=== PATIENT | male | born 1955 | race Caucasian/White ===

== ENCOUNTER 2019-03-30 04:46 | Observation (INO) | payer OTHER ==
[~2019-03-30] VITALS: Ht 188 cm; Wt 85.3 kg
--- NOTE | ~2019-03-30 | CON ---
[address] [address] CONSULTATION Name: ASHLI CALLE Room: [address] IN M.R.#: [id number] Admission: 03/30/19 Attend Phys: Len Brandon MD Discharge: Date of : 57 Report #: [id number] THIS REPORT FOR: //name// CC: Len Garber HISTORY OF PRESENT ILLNESS: This is a pleasant 64-year-old gentleman with prior history of diverticulosis, ____, presenting with bright red blood per rectum. The patient reports he was in his usual state of health until yesterday when he began noticing bright red blood per rectum. The patient reports this was present when he was passing stool. He denies any pain associated with passing stool and denies any abdominal pain or cramps. The patient reports amount of blood is moderate and is enough to turn the color of the water in the toilet bowl deep red. The patient reports intermittent hematochezia in the past, but not to this extent. He reports a prior history of colonoscopy that demonstrated adenoma, diverticulosis and hemorrhoids. The patient denies any NSAID or antithrombotic agents use. PAST MEDICAL HISTORY: Nonsignificant. PAST SURGICAL HISTORY: Nonsignificant. SOCIAL HISTORY: The patient denies smoking, alcohol or recreational drug use. FAMILY HISTORY: There is no family history of colorectal cancer or Bowens related neoplasia. REVIEW OF SYSTEMS: A comprehensive 10-point review of systems is negative except for what is mentioned in the HPI. PHYSICAL EXAMINATION: GENERAL: The patient is alert, awake, oriented x 3. HEENT: Pupils are equal, round, reactive to light and accommodation. Mucous membranes are moist. ABDOMEN: ____ guarding or rigidity. EXTREMITIES: Warm and well-perfused, no edema. SKIN: Warm and dry. Dictation Ends Here By: [id number] Curiel MD /nt
--- NOTE | ~2019-03-30 | PROC ---
[facility] [address] [place] [address] PROCEDURE REPORT Name: ASHLI CALLE Room: [address] Raj Jauregui#: [id number] Admission: 03/30/19 Attend Phys: Len Brandon MD Discharge: 04/01/19 Date of : 57 Report #: [id number] THIS REPORT FOR: //name// For GI report, please see the Provation report in Perceptive 7 content. By: [id number] Records Staff TORIN /ELIOSA
--- NOTE | ~2019-03-30 | CON ---
[address] [address] CONSULTATION Name: ASHLI CALLE Room: [address] IN .R.#: [id number] Admission: 03/30/19 Attend Phys: Len Brandon MD Discharge: Date of : 57 Report #: [id number] THIS REPORT FOR: //name// [facility]: [facility] DATA: Hemoglobin 15.3, hematocrit 43.9, platelet count 171, WBC count 5.5. Sodium 136, potassium 4.3, chloride 101, bicarbonate 27, BUN 14, creatinine 0.9, total bilirubin 0.4, AST 22, ALT 35, alkaline phosphatase 68, lipase 121. IMAGING: CT abdomen and pelvis, multiple large cysts throughout the liver; multiple small cysts and occasional large cysts in both kidneys; pancreas and spleen unremarkable; large amount of food material in the stomach; large amount of stool throughout various regions of the colon; extensive distal diverticulosis without evidence of diverticulitis or colitis. ASSESSMENT AND PLAN: A pleasant 64-year-old gentleman with prior history of diverticulosis, colonic adenoma and hemorrhoids, who is presenting with painless hematochezia. I will place the patient on clear liquid diet for today and prep him for colonoscopy tomorrow. Further recommendations will be based on the results of colonoscopy. By: 1904 MD mercedes Delvalle
[2019-03-30 04:53] VITALS: BP 150/84
[2019-03-30 05:14] LABS: ABSOLUTE LYMPHOCYTES 0.6 thou/uL (0.8-5.3); ABSOLUTE MONOCYTES 0.5 thou/uL (0.0-1.2); ABSOLUTE NEUTROPHILS 4.4 thou/uL (1.6-8.1); BASOPHILS 0.6 %; EOSINOPHILS 0.3 %; HEMATOCRIT 43.9 % (42.0-52.0); HEMOGLOBIN 15.3 gm/dL (14.0-18.0); LYMPHOCYTES 11.5 %; MCH 31.5 pg (26.0-34.0); MCHC 34.8 g/dL (28.0-37.0); MCV 90.5 fL (80.0-100.0); MONOCYTES 9.1 %; MPV 8.5 fl. (7.2-11.1); NUCLEATED RBCS 0 /100WBC; PLATELET COUNT* 171 thou/uL (150-400); POLYS 78.5 %; RBC 4.85 mil/uL (4.50-6.00); RDW-CV 13.3 % (10.5-14.5); WBC 5.5 thou/uL (4.0-11.0)
[2019-03-30 05:21] LABS: ANION GAP 8 mmol/L (7-16); BUN 14 mg/dL (7-18); CALCIUM 8.8 mg/dL (8.5-10.1); CHLORIDE 101 mmol/L (98-107); CO2 27 mmol/L (21-32); CREATININE 0.9 mg/dL (0.6-1.3); GLUCOSE 97 mg/dL (70-99); POTASSIUM 4.3 mmol/L (3.5-5.1); SODIUM 136 mmol/L (136-145)
[2019-03-30 05:23] LABS: APTT 28.8 Seconds (25.0-31.3); PROTIME 10.1 Seconds (9.20-11.50)
[2019-03-30 05:33] LABS: ALKALINE PHOSPHATASE 68 U/L (46-116); LIPASE 121 U/L (73-393); SGOT 22 U/L (15-37); SGPT 35 U/L (30-65); TOTAL BILIRUBIN 0.4 mg/dL (<0.1-1.0); TROPONIN-I LEVEL <0.06 ng/mL (<0.06)
--- NOTE | 2019-03-30 05:58 | NUR ---
PT UP TO RESTROOM AND PASSED LARGE AMOUNT OF BRIGHT RED BLOOD. DR BANKS NOTIFIED
[2019-03-30 06:06] LABS: URINE BILIRUBIN NEGATIVE (Negative); URINE BLOOD NEGATIVE (Negative); URINE CLARITY CLEAR; URINE COLOR YELLOW; URINE GLUCOSE-RANDOM NEGATIVE (Negative); URINE KETONES NEGATIVE (Negative); URINE LEUKOCYTES-REFLEX NEGATIVE (Negative); URINE NITRITE-REFLEX NEGATIVE (Negative); URINE PROTEIN NEGATIVE (Negative); URINE SPECIFIC GRAVITY <= 1.005 (1.005-1.030); URINE UROBILINOGEN 0.2 E.U./dl (0.2-1.0)
--- NOTE | 2019-03-30 11:02 | EKG ---
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
[2019-03-30 14:00] VITALS: BP 134/88
--- NOTE | 2019-03-30 14:35 | NUR ---
DIRECT ADMIT TO 205 ORIENTED TO AND CALL LIGHT VS DONE AND STABLE SEE DOCUMENTATION ADMISSION ASSMNT AND HX TO BE DONE
[2019-03-30 14:40] VITALS: BP 122/74
[2019-03-30] MEDS ORDERED: PROSCAR 5MG TABL5 MG PO (14:48)
[2019-03-30 14:59] LABS: HEMATOCRIT 42.6 % (42.0-52.0); HEMOGLOBIN 14.5 gm/dL (14.0-18.0)
[2019-03-30 15:56] VITALS: BP 144/89
[2019-03-30 16:15] VITALS: BP 148/88
[2019-03-30 20:00] VITALS: BP 149/79
[2019-03-31 00:11] VITALS: BP 142/82
--- NOTE | 2019-03-31 03:58 | NUR ---
ASSUMED PT CARE APPROX 1930. PT IS AWAKE AND ORIENTED X4. VSS ON RA. 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 PT DENIES PAIN/NAUSEA. BOWEL PREP IN PROGRESS. PT's BM IS CLEARING UP, WITH MINIMAL BLOOD NOTED. PT IS FOR COLONOSCOPY WITH POSSIBLE BIOPSY, POLYPECTOMY, CONTROL OF HEMORRHAGE IN AM. PT ADVISED TO HAVE NOTHING PER [place]. CALL LIGHT WITHIN REACH. HOURLY ROUNDING DONE FOR PT SAFETY.
[2019-03-31 04:14] VITALS: BP 149/78
[2019-03-31 05:40] LABS: ABSOLUTE LYMPHOCYTES 0.7 thou/uL (0.8-5.3); ABSOLUTE MONOCYTES 0.3 thou/uL (0.0-1.2); ABSOLUTE NEUTROPHILS 2.2 thou/uL (1.6-8.1); BASOPHILS 0.6 %; EOSINOPHILS 0.6 %; HEMATOCRIT 41.3 % (42.0-52.0); HEMOGLOBIN 14.2 gm/dL (14.0-18.0); LYMPHOCYTES 21.7 %; MCH 31.5 pg (26.0-34.0); MCHC 34.4 g/dL (28.0-37.0); MCV 91.6 fL (80.0-100.0); MONOCYTES 10.4 %; NUCLEATED RBCS 0 /100WBC; PLATELET COUNT* 149 thou/uL (150-400); POLYS 66.7 %; RBC 4.51 mil/uL (4.50-6.00); RDW-CV 13.5 % (10.5-14.5); WBC 3.3 thou/uL (4.0-11.0)
[2019-03-31 06:05] LABS: CALCIUM 8.4 mg/dL (8.5-10.1); CREATININE 0.7 mg/dL (0.6-1.3); POTASSIUM 4.4 mmol/L (3.5-5.1)
[2019-03-31 08:26] VITALS: BP 149/78
[2019-03-31 16:00] VITALS: BP 144/83
--- NOTE | 2019-03-31 18:11 | NUR ---
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 COLONOSCOPY COMPLETED, RESULTS CHARTED, PT TOLERATED WELL AND NO BLEEDING NOTED FROM RECTUM. HOURLY ROUNDING COMPLETED.
[2019-03-31 20:00] VITALS: BP 130/72
[2019-04-01] VITALS: BP 146/79
[2019-04-01 04:00] VITALS: BP 120/66
--- NOTE | 2019-04-01 05:49 | NUR ---
PATIENT SLEPT MOST OF THE NIGHT. IV REMAINS SALINE LOCKED. PATIENT REMAINS SR ON THE MONITOR. PATIENT HAD NO COMPLAINTS OF PAIN. PATIENT IS SUPPOSED TO DISCHARGE HOME TODAY. WILL CONTINUE TO MONITOR.
[2019-04-01 08:12] VITALS: BP 141/74
--- NOTE | 2019-04-01 10:25 | NUR ---
RECEIVED REPORT FROM RICHA AND ASSUMED CARE OF PT @ 1250.PT IS A/O X4,VSS,TRACING SR ON THE MONITOR.IV PATENT AND SALINE LOCKED.PT IS CALM AND COOPERATIVE WITH NO C/O PAIN AND ANXIOUS TO DISCHARGE.PT LEFT RESTING IN BED WITH CALL LIGHT WITHIN REACH.WILL CONTINUE TO MONITOR.
[2019-04-01] MEDS ORDERED: ANUSOL-HC25 MG RECTAL (10:31)
--- NOTE | 2019-04-01 10:58 | NUR ---
PT OK TO DISCHARGE.PAPERWORK COMPLETED AND GIVEN TO PT.SCRIPT GIVEN WITH EDUCATION.IV REMOVED.HEART MONITOR REMOVED AND RETURNED TO THE NURSING STATION.ALL PERSONAL BELONGINGS PACKED AND TAKEN WITH THE PT.PT WHEELED OUT BY NURSING STAFF TO PERSONAL VEHICLE.
== END 2019-04-01 11:00 | disposition home or self-care (01) ==
LOC: M.ERS 04:46 → M.2W 06:12 → M.TBA-ER 06:12 → M.2W 06:12
PROVIDERS: Family Medicine; ADMIT Internal Medicine
DX: K92.2 Gastrointestinal hemorrhage, unspecified (principal); I10 Essential (primary) hypertension; Z87.19 Personal history of other diseases of the digestive system; Z79.899 Other long term (current) drug therapy